=== PATIENT | male | born 1950 | race Caucasian/White ===

== ENCOUNTER 2022-05-11 23:58 | Emergency (ER) | payer MEDICARE, SELFPAY ==
[2022-05-11 23:59] VITALS: BP 130/82; PULSE 117; RESP 18; TEMP 36.4; O2SAT 93; BMI 24.3
--- NOTE | 2022-05-12 00:05 | XRR_ITS ---
PROCEDURE INFORMATION: Exam: XR Chest Exam date and time: 05/12/2022 12:10 AM Age: 72 years old Clinical indication: Fever; Prior surgery; Surgery date: 6+ months; Surgery type: Pacemaker TECHNIQUE: Imaging protocol: Radiologic exam of the chest. Views: 1 view. COMPARISON: No relevant prior studies available. FINDINGS: Tubes, catheters and devices: Left chest ICD is present. Lungs: Unremarkable. No consolidation. Pleural spaces: Unremarkable. No pleural effusion. No pneumothorax. Heart/Mediastinum: Unremarkable cardiac silhouette. Bones/joints: Unremarkable. XR/XR chest 1V portable [id number] IMPRESSION: Negative exam.
[2022-05-12 00:11] VITALS: BP 104/85; PULSE 124; RESP 18; O2SAT 93; O2SAT 94
[2022-05-12 00:17] LABS: Basophils % 0.3 %; Eosinophils # 0.2 10^3/uL (0.0-0.8); Eosinophils % 2.5 %; Hematocrit 43.2 % (42.0-52.0); Hemoglobin 13.9 g/dL (11.7-16.6); Lymphocytes # 0.4 10^3/uL (0.8-4.8); Lymphocytes % 4.9 %; Mean Corpuscular HGB Conc 32.2 g/dL (30.0-36.0); Mean Corpuscular Hemoglobin 28.4 pg (28.0-34.0); Mean Corpuscular Volume 88.3 fl (80-94); Monocytes # 0.4 10^3/uL (0.2-0.9); Monocytes % 5.6 %; Neutrophils # 6.83 10^3/uL (1.8-7.7); Neutrophils % 86.4 %; Nucleated Red Blood Cells % 0 %; Platelet Count 193 10^3/cmm (130-400); Red Blood Count 4.89 10^6/uL (4.1-5.3); Red Cell Distribution Width 13.2 % (12.1-15.1); White Blood Count 7.9 10^3/uL (4.0-10.0)
[2022-05-12] MEDS: sodium chloride 0.9% 1,000 ML 999 ML IV (00:28)
[2022-05-12 00:29] VITALS: RESP 18
[2022-05-12] MEDS: ondansetron 2 mg/ML SDV 2 mL 4 MG IVP ×2 (00:29→02:51)
[2022-05-12] MEDS: fentaNYL 50 mcg/mL INJ 2mL IVP (00:29)
[2022-05-12] MEDS: dilTIAZem 5 mg/mL SDV 5 mL 15 MG IVP (00:34)
[2022-05-12 00:40] LABS: Lactic Sepsis W/Reflex 1.3 mmol/L (0.5-2.2)
[2022-05-12 00:41] LABS: Troponin T (5th) Once 13 ng/L (0-15)
[2022-05-12 00:43] LABS: Alanine Aminotransferase 7 U/L (0-41); Alkaline Phosphatase 66 U/L (40-130); Anion Gap 16.3 (5-19); Aspartate Amino Transferase 15 U/L (0-40); Blood Urea Nitrogen 32 mg/dL (8-23); Calcium 8.9 mg/dL (8.5-10.5); Carbon Dioxide 25 mmol/L (22-29); Chloride 104 mmol/L (98-107); Globulin 3.1 g/dL (1.3-4.6); Glucose 158 mg/dL (65-115); Osmolality Calculated 302 mOsm/kg (285-295); Potassium 4.3 mmol/L (3.5-5.1); Sodium 141 mmol/L (136-145); Total Bilirubin 0.5 mg/dL (0.15-1.2); Total Protein 7.1 g/dL (6.6-8.7)
[2022-05-12 00:54] LABS: NT Pro B Type Natriuretic Pept 240 pg/mL (0-125)
[2022-05-12 01:05] VITALS: BP 135/87; PULSE 86; PULSE 96; RESP 16; RESP 18; O2SAT 94
[2022-05-12 01:11] LABS: Add Urine Microscopic? NO; Bilirubin Urine Neg (Negative); Blood Urine Neg (Negative); Glucose Urine UA Norm (Normal); Ketones Urine Negative (Negative); Leukocyte Esterase Urine Negative (Negative); Nitrate Urine Negative (Negative); Protein Urine Neg (Negative); Urine Appearance Clear (CLEAR); Urine Color Yellow (Yellow); Urobilinogen Urine Neg (Negative); pH Urine 5 (5-7)
[2022-05-12 01:12] LABS: Charge for UA Resulting for Rev
[2022-05-12 02:06] LABS: Adenovirus Not Detected (NOT DETECT); Chlamydia Pneumoniae Not Detected (NOT DETECT); Coronavirus 229E,HKU1,NL63,OC4 Not Detected (NOT DETECT); Human Metapneumovirus Not Detected (NOT DETECT); Human Rhinovirus/Enterovirus Not Detected (NOT DETECT); Influenza A Not Detected (NOT DETECT); Influenza A H1 Not Detected (NOT DETECT); Influenza A H1-2009 Not Detected (NOT DETECT); Influenza A H3 Not Detected (NOT DETECT); Influenza B Not Detected (NOT DETECT); Mycoplasma Pneumoniae Not Detected (NOT DETECT); Parainfluenza Virus Type 1 Not Detected (NOT DETECT); Parainfluenza Virus Type 2 Not Detected (NOT DETECT); Parainfluenza Virus Type 3 Not Detected (NOT DETECT); Parainfluenza Virus Type 4 Not Detected (NOT DETECT); Respiratory Syncytial Virus A Not Detected (NOT DETECT); Respiratory Syncytial Virus B Not Detected (NOT DETECT); SARS-COV-2 Not Detected (NOT DETECT)
[2022-05-12 03:00] VITALS: RESP 18
[2022-05-12] MEDS: oxyCODONE-APAP 5-325 mg Tablet 1 TAB PO (03:00)
[2022-05-12 03:04] VITALS: BP 121/88; PULSE 100; RESP 18; O2SAT 95
--- NOTE | 2022-05-12 20:46 | ED_ITS ---
HPI - COVID General: Chief Complaint: COVID symptoms Stated Complaint: FEVER/BODY ACHES Time Seen by Provider: 05/12/22 00:05 Source: patient History of Present Illness: 72 year old gentleman of the history of atrial fibrillation. He presents with generalized body aches and pains, vomiting, and nausea with upset stomach. He felt warm and feverish at home. He had chills. Some of these symptoms are somewhat improved, but his heart is racing. He denies significant chest pain. No known sick contacts. No antibiotic exposure. MD complaint: has COVID symptoms Prior covid testing: no COVID 19 common symptoms: positive fever(s), chills, fatigue, body aches, headache(s), nasal congestion, nausea and vomiting; negative dyspnea, loss of sense of smell and/or taste or diarrhea COVID 19 other sytmptoms: negative chest pressure, chest pain, requiring oxygen or confusion Onset (ago): hour(s) Severity: moderate Pertinent comorbid conditions: other Treatment prior to arrival: none COVID Results: SARS-CoV-2 (PCR) Not detected (NOT DETECT) 05/12/22 00:15 Coronavirus Type 229E (PCR) Not detected (NOT DETECT) 05/12/22 00:15 Review of Systems Const: Reports: fever(s), chills, body aches and fatigue Eyes: Denies: change in vision ENMT: Reports: nasal congestion Card: Denies: chest pain Resp: Denies: dyspnea GI: Reports: nausea and vomiting; Denies: diarrhea : Denies: flank pain or difficulty urinating Musc: Denies: neck pain or back pain Neuro: Reports: headache(s); Denies: confusion Physical Exam Const: GENERAL APPEARANCE: cooperative and frail appearing (mildly) NUTRITIONAL APPEARANCE: thin ORIENTATION/CONSCIOUSNESS: Yes awake, Yes oriented to person and Yes oriented to place HENMT: COMMON NORMALS: normocephalic, atraumatic and Normal external nose present HEAD & SCALP: normocephalic and atraumatic FACE & SINUS: normal facial exam and face symmetric NOSE: Normal external nose present Eye: COMMON NORMALS: Equal, round and reactive pupils present and EOMs intact bilaterally PUPIL: Yes Equal, round and reactive pupils present Neck/C-Spine: COMMON NORMALS: full ROM GENERAL: No anterior neck swelling and No Meningeal signs present CERVICAL SPINE: Yes cervical ROM normal Chest: CHEST: Yes Symmetrical chest wall rise Resp: COMMON NORMALS: normal respiratory effort, No retractions, No use of accessory muscles and clear to auscultation bilaterally AUSCULTATION: clear to auscultation bilaterally Cardio: RATE: tachycardic RHYTHM: abnormal rhythm irregularly irregular GI: COMMON NORMALS: Normal to inspection, nondistended, normoactive bowel sounds present INSPECTION: Yes normal to inspection PALPATION: No Tenderness to palpation present (GI) : COMMON NORMALS: Yes no CVA tenderness BLADDER/KIDNEY EXAM: Yes no CVA tenderness Back/Pelvis: COMMON NORMALS: no CVA tenderness Extremity: COMMON NORMALS: normal to inspection Neuro: CORNELIUS COMA SCALE: document GCS findings [place] coma scale eye opening: Spontaneous Cornelius coma scale verbal response: Orientated [place] coma scale motor response: Obey commands [place] coma scale total score: 15 SENSORIUM/ORIENTATION: Yes oriented to person and Yes oriented to place Psych: COMMON NORMALS: speech normal SPEECH: Yes normal speech Skin: COMMON NORMALS: no rashes or lesions noted GENERAL SKIN EXAM: no rashes or lesions noted Course Vital Signs: Vital signs: Vital Signs Temperature 97.5 F L 05/11/22 23:59 Pulse Rate 100 05/12/22 03:04 Respiratory Rate 18 05/12/22 03:04 Blood Pressure 121/88 05/12/22 03:04 Pulse Oximetry 95 05/12/22 03:04 Oxygen Delivery Me thod 05/12/22 01:05 [facility] [place] - COVID Medical Decision Making Ventricular rate is now controlled after one dose of diltiazem, and a fluid bolus. Nausea is improved. He is still experiencing some generalized aches and pains. His laboratory is benign. Is COVID-19 testing is negative here. This is likely more of a viral gastroenteritis. He will be allowed home with symptomatic treatment. Lab Data : 05/12/22 00:08 05/12/22 00:08 Radiology Impressions Chest X-Ray 05/12/22 00:05 IMPRESSION: Negative exam. Laboratory Results WBC 7.9 10^3/uL (4.0-10.0) 05/12/22 00:08 RBC 4.89 10^6/uL (4.1-5.3) 05/12/22 00:08 Hgb 13.9 g/dL (11.7-16.6) 05/12/22 00:08 Hct 43.2 % (42.0-52.0) 05/12/22 00:08 MCV 88.3 fl (80-94) 05/12/22 00:08 MCH 28.4 pg (28.0-34.0) 05/12/22 00:08 MCHC 32.2 g/dL (30.0-36.0) 05/12/22 00:08 RDW 13.2 % (12.1-15.1) 05/12/22 00:08 Plt Count 193 10^3/cmm (130-400) 05/12/22 00:08 MPV 10.0 fL (7.4-10.4) 05/12/22 00:08 Neut % (Auto) 86.4 % 05/12/22 00:08 Lymph % (Auto) 4.9 % 05/12/22 00:08 [place] % (Auto) 5.6 % 05/12/22 00:08 Eos % (Auto) 2.5 % 05/12/22 00:08 Baso % (Auto) 0.3 % 05/12/22 00:08 Neut # (Auto) 6.83 10^3/uL (1.8-7.7) 05/12/22 00:08 Lymph # (Auto) 0.4 10^3/uL (0.8-4.8) L 05/12/22 00:08 [place] # (Auto) 0.4 10^3/uL (0.2-0.9) 05/12/22 00:08 Eos # (Auto) 0.2 10^3/uL (0.0-0.8) 05/12/22 00:08 Baso # (Auto) 0.0 10^3/uL (0.0-0.1) 05/12/22 00:08 Nucleated RBC % (auto) 0 % 05/12/22 00:08 Nucleated RBCs # 0.0 /100WBC 05/12/22 00:08 Sodium 141 mmol/L (136-145) 05/12/22 00:08 Potassium 4.3 mmol/L (3.5-5.1) 05/12/22 00:08 Chloride 104 mmol/L (98-107) 05/12/22 00:08 Carbon Dioxide 25 mmol/L (22-29) 05/12/22 00:08 Anion Gap 16.3 (5-19) 05/12/22 00:08 BUN 32 mg/dL (8-23) H 05/12/22 00:08 Creatinine 1.2 mg/dL (0.7-1.2) 05/12/22 00:08 GFR Calculation Not Reportable 05/12/22 00:08 Glucose 158 mg/dL (65-115) H 05/12/22 00:08 Calculated Osmolality 302 mOsm/kg (285-295) H 05/12/22 00:08 Lactic Acid 1.3 mmol/L (0.5-2.2) 05/12/22 00:08 Calcium 8.9 mg/dL (8.5-10.5) 05/12/22 00:08 Total Bilirubin 0.5 mg/dL (0.15-1.2) 05/12/22 00:08 AST 15 U/L (0-40) 05/12/22 00:08 ALT 7 U/L (0-41) 05/12/22 00:08 Alkaline Phosphatase 66 U/L (40-130) 05/12/22 00:08 Troponin T Gen 5 ng/L 13 ng/L (0-15) 05/12/22 00:08 C-Reactive Protein 3.0 mg/L (0.0-4.9) 05/12/22 00:08 NT-Pro-B Natriuret Pep 240 pg/mL (0-125) H 05/12/22 00:08 Total Protein 7.1 g/dL (6.6-8.7) 05/12/22 00:08 Albumin 4.0 g/dL (3.5-5.2) 05/12/22 00:08 Globulin 3.1 g/dL (1.3-4.6) 05/12/22 00:08 Urine Color Yellow (Yellow) 05/12/22 00:23 Urine Appearance Clear (CLEAR) 05/12/22 00:23 Urine pH 5 (5-7) 05/12/22 00:23 Ur Specific [place] 1.020 (1.005-1.030) 05/12/22 00:23 Urine Protein Neg (Negative) 05/12/22 00:23 Urine Glucose (UA) Norm (Normal) 05/12/22 00:23 Urine Ketones Negative (Negative) 05/12/22 00:23 Urine Blood Neg (Negative) 05/12/22 00:23 Urine Nitrate Negative (Negative) 05/12/22 00:23 Urine Bilirubin Neg (Negative) 05/12/22 00:23 Urine Urobilinogen Neg mg/dL (Negative) 05/12/22 00:23 Ur Leukocyte Esterase Negative (Negative) 05/12/22 00:23 Coronavirus 229E (PCR) Not detected (NOT DETECT) 05/12/22 00:15 SARS-CoV-2 (PCR) Not detected (NOT DETECT) 05/12/22 00:15 SARS-CoV-2 (PCR) Not detected (NOT DETECT) 05/12/22 00:15 Coronavirus Type 229E (PCR) Not detected (NOT DETECT) 05/12/22 00:15 Discharge Plan Discharge Patient Disposition: Home Clinical Impression: Viral infection, Vomiting, Atrial fibrillation Condition: Stable Prescriptions: New ondansetron 4 mg film 4 mg PO DAILY PRN (Reason: nausea and vomiting) Qty: 10 0RF Discharge Orders: Discharge ED (Routine); Ordered 05/12/22 Ordered By: Manuel Roland Patient Instructions: A-fib (Atrial Fibrillation) (ED), Viral Syndrome (ED), Vomiting - Adult Activity Restrictions/Additional Instructions: Drink plenty of clear liquids for the next 24 to 48 hours. Use medication prescribed scheduled every 6 hours while awake for the first 24 hours, then as needed. Return for vomiting liquids or medications, worsening palpitations development of chest discomfort, inability to control temperature, shortness of breath, any other concerning symptoms. Coding Level of Care Code ED [employer] for Ernst Zavala
== END 2022-05-12 03:08 | disposition home or self-care (01) ==
PROVIDERS: Nurse Practitioner Family; Emergency Provider Emergency Medicine
DX: B34.9 Viral infection, unspecified (principal); I48.91 Unspecified atrial fibrillation; R11.11 Vomiting without nausea; Z20.822 Contact with and (suspected) exposure to COVID-19
CPT/HCPCS: 36415; 71045; 80053; 81003; 83605; 83880; 84484; 85025; 86140; 87040; 87635; 96361; 96374; 96375; 96376; 99284; J2405; J3010; J3490; J7030